=== PATIENT | female | born 1985 | race Caucasian/White ===

== ENCOUNTER 2017-08-04 21:43 | Emergency (ER) | payer MEDICARE, OTHER ==
[~2017-08-04] VITALS: Ht 157.5 cm; Wt 50.0 kg
[~2017-08-04 21:43] MED LIST: FIORIC PO
[2017-08-04 21:44] VITALS: BP 129/62; PULSE 80; RESP 15; TEMP 98; O2SAT 98
[2017-08-04] MEDS ORDERED: SODIUM CHLORIDE 0.9% FLUSH 10 ML FLUSH IV FLUSH PRN (22:15)
[2017-08-04 22:38] VITALS: BP 110/59; PULSE 73; RESP 18; TEMP 98.2; O2SAT 100
[2017-08-04 23:01] LABS: BACTERIA, URINE RARE /hpf; BLOOD, URINE NEG (NEG); GLUCOSE,URINE NEG (NEG); KETONE, URINE NEG (NEG); MUCUS URINE FEW /lpf (OCC); NITRITE,URINE NEG (NEG); SQUAMOUS EPITHELIAL CELL URINE 3 /hpf (0-5); URINE COLOR YELLOW (YELLW/STRAW)
[2017-08-04 23:03] LABS: COMMENT (UR) CULT NOT INDICATED; CULTURE IF INDICATED CULT NOT INDICATED
--- NOTE | 2017-08-04 23:05 | RADRPT ---
EXAM DATE/TIME: 08/04/2017 22:49 [place] COMPARISON: No previous studies available for comparison. INDICATIONS : Abdominal distention and constipation x4 days. ORAL CONTRAST: No oral contrast ingested. RADIATION DOSE: 4.50 CTDIvol (mGy) MEDICAL HISTORY : None SURGICAL HISTORY : Tubal ligation. section. ENCOUNTER: Initial ACUITY: 4 - 6 days PAIN SCALE: 6/10 LOCATION: Bilateral abdomen TECHNIQUE: Volumetric scanning of the abdomen and pelvis was performed. Using automated exposure control and ad justment of the mA and/or kV according to patient size, radiation dose was kept as low as reasonably achievable to obtain optimal diagnostic quality images. DICOM format image data is available electro nically for review and comparison. FINDINGS: Lung bases are clear. No acute findings in the liver, spleen, adrenals, kidneys or pancreas. Tiny non obstructing 1 mm calculus mid pole left kidney. Moderate constipation. No bowel obstruction. No free air or free fluid. Tubal ligation clips present in the pelvis. Mild levoscoliosis. CONCLUSION: 1. Moderate constipation. No obstruction, free fluid or free air. No acute findings. Small hiatal her jarret. Jc Atkinson MD on August 04, 2017 at 23:01 Board Certified Radiologist. This report was verified electronically.
--- NOTE | 2017-08-04 23:07 | PD ---
HPI Chief Complaint: GI Complaint Time Seen by Provider: 22:01 Travel History International Travel<30 days: No Contact w/Intl Traveler<30days: No Traveled to known affect area: No History of Present Illness HPI PATIENT C/O LAST BM 5 DAYS AGO AND NOW HAS HAD INCREASED IN SIZE OF HER ABDOMEN , SHE HAS IRREGULAR PERIODS ALSO, NO N/V/FEVER...ABLE TO PASS GAS NO PCP ALL: HIVES TO AMPICILLIN AND VOMITING TO FLAGYL PMHX: MIGRAINE NO MEDS DENIES PSHX PFSH Past Medical History Migraines: Yes Tubal Ligation: Yes Past Surgical History Abdominal Surgery: Yes Section: Yes (x3) Social History Alcohol Use: No Tobacco Use: Yes Substance Use: No Allergies-Medications (Allergen,Severity, Reaction): Coded Allergies: acetaminophen (Unverified Allergy, Severe, Rash, 08/04/17) ampicillin (Unverified Allergy, Severe, Rash, 08/04/17) codeine (Unverified Allergy, Severe, Rash, 08/04/17) metronidazole (Unverified Allergy, Severe, Rash, 08/04/17) propoxyphene (Unverified Allergy, Severe, Rash, 08/04/17) Reported Meds & Prescriptions Reported Meds & Active Scripts Active Fioricet Tab (Acetaminophen/Butalbital/Caffeine) 1 Tab 1 Tab PO Q6H PRN Review of Systems Except as stated in HPI: all other systems reviewed are Neg Gastrointestinal: Positive: Abdominal Pain, Constipation, Changes in Bowel Habits Physical Exam Narrative GENERAL: SKIN: Warm and dry. HEAD: Atraumatic. Normocephalic. EYES: Pupils equal and round. No scleral icterus. No injection or drainage. ENT: No nasal bleeding or discharge. Mucous membranes pink and moist. NECK: Trachea midline. No JVD. CARDIOVASCULAR: Regular rate and rhythm. RESPIRATORY: No accessory muscle use. Clear to auscultation. Breath sounds equal bilaterally. GASTROINTESTINAL: Abdomen soft, non-tender, nondistended. PATIENT NOTED TO BE BLOATED, WITH PRESENT BOWEL SOUNDS MUSCULOSKELETAL: Extremities without clubbing, cyanosis, or edema. No obvious deformities. NEUROLOGICAL: Awake and alert. No obvious cranial nerve deficits. Motor grossly within normal limits. Five out of 5 muscle strength in the arms and legs. Normal speech. PSYCHIATRIC: Appropriate mood and affect; insight and judgment normal. Data Data Last Documented VS Vital Signs Date Time Temp Pulse Resp B/P (MAP) Pulse Ox O2 Delivery O2 Flow Rate FiO2 08/04/17 22:38 98.2 73 18 110/59 (76) 100 08/04/17 21:44 Room Air Orders Orders Urinalysis - C+S If Indicated (08/04/17 22:02) Ct Abd/Pel W/O Iv Contrast (08/04/17 22:02) Iv Access Insert/Monitor (08/04/17 22:02) Ecg Monitoring (08/04/17 22:02) Oximetry (08/04/17 22:02) Sodium Chloride 0.9% Flush (Ns Flush) (08/04/17 22:15) Ed Urine Pregnancytest Poc (08/04/17 22:02) Labs Laboratory Tests Test 08/04/17 22:30 Urine Color YELLOW Urine Turbidity CLEAR Urine pH 6.0 Urine Specific [place] 1.030 Urine Protein TRACE mg/dL Urine Glucose (UA) NEG mg/dL Urine Ketones NEG mg/dL Urine Occult Blood NEG Urine Nitrite NEG Urine Bilirubin NEG Urine Urobilinogen 2.0 MG/DL Urine Leukocyte Esterase NEG Urine RBC 2 /hpf Urine WBC 1 /hpf Urine Squamous Epithelial Cells 3 /hpf Urine Bacteria RARE /hpf Urine Mucus FEW /lpf Microscopic Urinalysis Comment CULT NOT INDICATED MDM Medical Decision Making Medical Screen Exam Complete: Yes Emergency Medical Condition: Yes Medical Record Reviewed: Yes Differential Diagnosis PREG RELATED V UTI V SBO V ILEUS V APPY V COLITIS V DIVERTIC V CONSTIPATION Narrative Course NEG TEST, UA NEG FOR UTI, CT NEG APPY/DIVERTIC/COLITIS/ILEUS ONLY SHOWS MODERATE CONSTIPATION Diagnosis Primary Impression: Constipation Qualified Codes: K59.00 - Constipation, unspecified Patient Instructions: Constipation (ED), General Instructions Scripts Polyethylene Glycol 3350 Powder (Miralax Powder) 17 Gm Powd 17 GM PO DAILY for Constipation, #1 CAN 0 Refills Mix and dissolve one measuring cap-ful (17 grams) in water or juice. Prov: Anderson Avila MD 08/04/17 Magnesium Citrate Liq (Magnesium Citrate Liq) 300 Ml Liq 300 ML PO ONCE, #1 BOTTLE 0 Refills Prov: Anderson Avila MD 08/04/17 Lactulose Liq (Lactulose Liq) 10 Gm/15 Ml Soln 30 ML PO Q6H Y for CONSTIPATION for 5 Days, #600 ML 0 Refills Prov: Anderson Avila MD 08/04/17 Disposition: 01 DISCHARGE HOME Condition: Stable Anderson Avila MD Aug 04, 2017 23:07
[2017-08-04] MEDS ORDERED: LACT10SO PO (23:11)
[2017-08-04] MEDS ORDERED: MAGNSOL2 PO (23:11)
[2017-08-04] MEDS ORDERED: MIRA3350 PO (23:11)
== END 2017-08-05 00:43 | disposition home or self-care (01) ==
LOC: NEPE 21:43
DX: K59.00 Constipation, unspecified (principal); Z72.0 Tobacco use
CPT/HCPCS: 74176; 81001; 84703; 99284

== ENCOUNTER 2017-11-09 09:49 | Emergency (ER) | payer SELFPAY ==
[~2017-11-09] VITALS: Ht 157.5 cm; Wt 50.0 kg
[~2017-11-09 09:49] MED LIST changes: -FIORIC PO; +LACT10SO PO; +MAGNSOL2 PO; +MIRA3350 PO
[2017-11-09 09:50] VITALS: BP 121/77; PULSE 85; RESP 16; TEMP 98.7; O2SAT 98
[2017-11-09] MEDS ORDERED: SULFAMETHOXAZOLE-TRIMETHOPRIM DS 800-160 MG TAB PO ONE (10:15)
[2017-11-09] MEDS ORDERED: BACT800T5 PO (10:18)
--- NOTE | 2017-11-09 10:18 | PD ---
HPI Chief Complaint: Skin Problem Time Seen by Provider: 10:00 Travel History International Travel<30 days: No Contact w/Intl Traveler<30days: No Traveled to known affect area: No History of Present Illness HPI 32-year-old female presents to the emergency room for evaluation of an abscess to her right dorsal forearm that started about one week ago. Patient states it started off as a small little white head. She squeezed it and it has rapidly expanded since then. States yesterday it was at its largest but overnight it popped and when she woke up this morning she had green discharge from the wound. She applied a Band-Aid and came to the emergency room for evaluation. Denies fevers. Denies chronic medical conditions or daily medications. PFSH Past Medical History Diminished Hearing: No Migraines: Yes Tetanus Vaccination: > 5 Years Influenza Vaccination: No ?: Not LMP: TUBAL LIGATION Tubal Ligation: Yes Past Surgical History Abdominal Surgery: Yes Section: Yes (X3) Other Surgery: Yes (EX LAP X2) Social History Alcohol Use: No Tobacco Use: Yes (<1 ppd) Substance Use: No Allergies-Medications (Allergen,Severity, Reaction): Coded Allergies: acetaminophen (Unverified Allergy, Severe, Rash, 11/09/17) ampicillin (Unverified Allergy, Severe, Rash, 11/09/17) codeine (Unverified Allergy, Severe, Rash, 11/09/17) metronidazole (Unverified Allergy, Severe, Rash, 11/09/17) propoxyphene (Unverified Allergy, Severe, Rash, 11/09/17) Reported Meds & Prescriptions Reported Meds & Active Scripts Active No Active Prescriptions or Reported Medications Review of Systems Except as stated in HPI: all other systems reviewed are Neg Physical Exam Narrative GENERAL: Well-nourished, well-developed female in no acute distress. Afebrile. Ambulatory. SKIN: Focused skin assessment warm/dry. There is an indurated area in the right dorsal forearm which measures about 2 cm in diameter. It is fluctuant with moderate amount of spontaneous drainage. There is a zone of inflammation around it but no lymphangitis. HEAD: Normocephalic. EYES: No scleral icterus. No injection or drainage. NECK: Supple, trachea midline. No JVD or lymphadenopathy. CARDIOVASCULAR: Regular rate and rhythm without murmurs, gallops, or rubs. RESPIRATORY: Breath sounds equal bilaterally. No accessory muscle use. MUSCULOSKELETAL: No cyanosis, or edema. Data Data Last Documented VS Vital Signs Date Time Temp Pulse Resp B/P (MAP) Pulse Ox O2 Delivery O2 Flow Rate FiO2 11/09/17 09:50 98.7 85 16 121/77 (92) 98 Room Air Orders Orders Sulfamet-Trimeth Ds 800-160 Mg (Bactrim (11/09/17 10:15) MDM Medical Decision Making Medical Screen Exam Complete: Yes Emergency Medical Condition: Yes Medical Record Reviewed: Yes Differential Diagnosis Abscess, cellulitis, folliculitis Narrative Course 32-year-old female presents to the emergency room for evaluation of right forearm abscess that started 1 week ago as a small pimple. States it began to drain last night. Physical exam reveals 2 cm area of induration with spontaneous drainage and surrounding erythema. No lymphangitis. Abscess was squeezed and a large amount of purulent drainage was removed. Patient was given first dose of antibiotics in the emergency room. Told to apply warm compresses to facilitate drainage and follow-up the primary care physician or return for worsening symptoms. She understands and agrees to plan. Diagnosis Primary Impression: Abscess of right arm Referrals: Primary Care Physician Additional Instructions: Rest and drink plenty of fluids. Warm compresses to the affected area for 20 minutes at a time, 5 times daily. Take Bactrim as directed, until gone. Follow up with a primary care physician. Return to emergency room for worsening symptoms, as discussed. Med/Other Pt SpecificInfo: Prescription(s) given Scripts No Active Prescriptions or Reported Meds Disposition: 01 DISCHARGE HOME Condition: Stable Sola Hodge Nov 09, 2017 10:18
== END 2017-11-09 10:35 | disposition home or self-care (01) ==
LOC: NEPK 09:49
DX: L02.413 Cutaneous abscess of right upper limb (principal); F17.200 Nicotine dependence, unspecified, uncomplicated
CPT/HCPCS: 99283

== ENCOUNTER 2017-11-18 22:56 | Emergency (ER) | payer SELFPAY ==
[~2017-11-18 22:56] MED LIST changes: +BACT800T5 PO; -LACT10SO PO; -MAGNSOL2 PO; -MIRA3350 PO
[2017-11-18 23:00] VITALS: BP 119/63; PULSE 74; RESP 14; TEMP 98.6; O2SAT 98
--- NOTE | 2017-11-19 00:31 | PD ---
HPI Chief Complaint: Headache Time Seen by Provider: 00:31 Travel History International Travel<30 days: No Contact w/Intl Traveler<30days: No Traveled to known affect area: No History of Present Illness HPI 32-year-old female with history of migraine headache presents to emergency department for evaluation of migraine headache since yesterday. Patient states she took migraine Excedrin without any relief of her symptoms. She states this has happened in the past. She denies any head trauma. Denies any focal deficits or weakness. She has been nauseous and has vomited one time. She states these are typical for her migraines in the past. She has no other symptoms reported this time. PFSH Past Medical History Diminished Hearing: No Headaches: Yes Migraines: Yes ?: Not Tubal Ligation: Yes Past Surgical History Abdominal Surgery: Yes Section: Yes (X3) Other Surgery: Yes (EX LAP X2) Social History Alcohol Use: No Tobacco Use: Yes (<1 ppd) Substance Use: No Allergies-Medications (Allergen,Severity, Reaction): Coded Allergies: ampicillin (Verified Allergy, Severe, Rash, 11/19/17) codeine (Verified Allergy, Severe, Rash, 11/19/17) metronidazole (Verified Allergy, Severe, Rash, 11/19/17) propoxyphene (Verified Allergy, Severe, Rash, 11/19/17) Reported Meds & Prescriptions Reported Meds & Active Scripts Active No Active Prescriptions or Reported Medications Review of Systems Except as stated in HPI: all other systems reviewed are Neg Physical Exam Narrative GENERAL: Well-nourished, well-developed female patient in no acute distress SKIN: Focused skin assessment warm/dry. HEAD: Normocephalic. Atraumatic EARS: Bilateral pinnae and external canals appear within normal limits. Bilateral tympanic membranes without erythema, dullness or perforation. EYES: No scleral icterus. No injection or drainage. EOMI PERRL NECK: Supple, trachea midline. No JVD or lymphadenopathy. CARDIOVASCULAR: Regular rate and rhythm without murmurs, gallops, or rubs. RESPIRATORY: Breath sounds equal bilaterally. No accessory muscle use. GASTROINTESTINAL: Abdomen soft, non-tender, nondistended. MUSCULOSKELETAL: No cyanosis, or edema. BACK: Nontender without obvious deformity. No CVA tenderness. Data Data Last Documented VS Vital Signs Date Time Temp Pulse Resp B/P (MAP) Pulse Ox O2 Delivery O2 Flow Rate FiO2 11/19/17 01:49 11/18/17 23:00 98.6 74 14 98 Orders Orders Iv Access Insert/Monitor (11/19/17 00:32) Ketorolac Inj (Toradol Inj) (11/19/17 00:45) Metoclopramide Inj (Reglan Inj) (11/19/17 00:45) Diphenhydramine Inj (Benadryl Inj) (11/19/17 00:45) Sodium Chlor 0.9% 1000 Ml Inj (Ns 1000 M (11/19/17 00:45) Ed Discharge Order (11/19/17 01:46) [facility] Medical Decision Making Medical Screen Exam Complete: Yes Emergency Medical Condition: Yes Medical Record Reviewed: Yes Differential Diagnosis Migraine headache with or without aura versus cluster headache versus tension headache Narrative Course 32-year-old female presents to the emergency department for evaluation. Patient appears without distress. She has no focal deficits or weakness. Patient is treated for her migraine. Upon reassessment, symptoms have resolved. She is encouraged to follow-up with primary care provider and return immediately with any acute worsening symptoms. Diagnosis Primary Impression: Migraine Qualified Codes: G43.909 - Migraine, unspecified, not intractable, without status migrainosus Referrals: Primary Care Physician Patient Instructions: General Instructions, Migraine Headache (ED) Additional Instructions: Rest Maintain adequate oral hydration Follow-up with your primary care provider Return immediately with any acute worsening of symptoms Med/Other Pt SpecificInfo: No Change to Meds Scripts No Active Prescriptions or Reported Meds Disposition: 01 DISCHARGE HOME Condition: Stable Ana Nye Nov 19, 2017 00:31
[2017-11-19] MEDS ORDERED: SODIUM CHLOR 0.9% 1000 ML INJ 1,000 ML IV ONE (00:45)
[2017-11-19] MEDS ORDERED: METOCLOPRAMIDE HCL 10 MG/2 ML VIAL IV PUSH ONE (00:45)
[2017-11-19] MEDS ORDERED: KETOROLAC TROMETHAMINE 30 MG/ML (IVP) VIAL IV PUSH ONE (00:45)
[2017-11-19] MEDS ORDERED: diphenhydrAMINE HCL 50 MG/ML VIAL IV PUSH ONE (00:45)
== END 2017-11-19 01:55 | disposition home or self-care (01) ==
LOC: NEPD 22:56
DX: G43.909 Migraine, unspecified, not intractable, without status migrainosus (principal); F17.200 Nicotine dependence, unspecified, uncomplicated
CPT/HCPCS: 96374; 96375; 99284; J1200; J1885; J2765; J7030

== ENCOUNTER 2018-09-30 01:03 | Observation (INO) ==
--- NOTE | 2018-09-30 01:34 | XR ---
EXAM DATE: 09/30/2018 1:25 AM EST AGE/SEX: 33 years / Female INDICATIONS: Shortness of breath. CLINICAL DATA: This is the patient's initial encounter. Patient reports that signs and symptoms have been present for 1 day and indicates a pain score of 0/10. MEDICAL/SURGICAL HISTORY: None. Tubal ligation. section. COMPARISON: No prior exams available for comparison. FINDINGS: A single AP view of the chest demonstrates the lungs to be symmetrically aerated without evidence of mass, infiltrate or effusion. The cardiomediastinal contours are unremarkable. Osseous structures a re intact. CONCLUSION: No acute findings. Electronically signed by: Jc Atkinson MD 09/30/2018 1:33 AM EST
[2018-09-30 01:37] LABS: Baso # (Auto) 0.1 th/mm3 (0.0-0.2); Baso % (Auto) 0.4 % (0.0-2.0); Eos # (Auto) 0.1 th/mm3 (0.0-0.4); Eos % (Auto) 0.9 % (0.0-4.0); Hematocrit 36.8 % (35.0-46.0); Hemoglobin 12.5 gm/dL (11.6-15.3); Lymph # (Auto) 4.3 th/mm3 (1.0-4.8); Lymph % (Auto) 37.1 % (9.0-44.0); Mean Corpuscular HGB Conc 33.9 % (32.0-36.0); Mean Corpuscular Hemoglobin 28.9 pg (27.0-34.0); Mean Corpuscular Volume 85.2 fL (80.0-100.0); Mean Platelet Volume 9.7 fL (7.0-11.0); Mono # (Auto) 1.2 th/mm3 (0.0-0.9); Mono % (Auto) 10.5 % (0.0-8.0); Neut # (Auto) 5.9 th/mm3 (1.8-7.7); Neut % (Auto) 51.1 % (16.0-70.0); Platelet Count 332 th/mm3 (150-450); Red Blood Count 4.32 mil/mm3 (4.00-5.30); Red Cell Distribution Width 17.5 % (11.6-17.2); White Blood Count 11.5 th/mm3 (4.0-11.0)
--- NOTE | 2018-09-30 01:37 | ED ---
HPI General Chief Complaint: Chest Pain Stated Complaint: Respiratory Time Seen by Provider: 09/30/18 01:08 Source: patient Mode of arrival: EMS Limitations: no limitations History of Present Illness HPI narrative: 33-year-old female came to the emergency room saying that for 2 weeks she has been coughing but today she started having left-sided chest pain. Since yesterday she has been feeling short of breath. She describes the pain as an elephant sitting on her chest on the left side. Pain radiates to her left axilla. She is a smoker. Has not been diagnosed with asthma or COPD. When EMS arrived they said that they heard crackles and inflammation on the left side. Vital signs were relatively stable. She received 1 vial of DuoNeb and 1 vial of albuterol upon arrival. She does not require oxygen at home. Pain is there constantly with no aggravating or relieving factors identified Related Data Home Medications Medication Instructions Recorded Confirmed No Known Home Medications 09/30/18 09/30/18 Allergies Allergy/AdvReac Type Severity Reaction Status Date / Time ampicillin Allergy Severe Rash Verified 04/23/18 14:44 codeine Allergy Severe Rash Verified 04/23/18 14:44 metronidazole Allergy Severe Rash Verified 04/23/18 14:44 propoxyphene Allergy Severe Rash Verified 04/23/18 14:44 Review of Systems ROS: all other systems reviewed are negative [facility] Medical History Medical History Migraine (Acute) Surgical History Surgical History Hx of section (Acute) Hx of right knee surgery (Acute) Hx of tubal ligation (Acute) Social History Social History Substance History: No History of Abuse Second Hand Smoke Exposure: Yes Smoking Status: Current every day smoker Tobacco Type: Cigarettes How Often Do You Have a Drink Containing Alcohol: Never Recent Travel in [facility] within the Last 8 Weeks: No Recent Out of Country Travel within the Last 8 Weeks: No Immunization History Tetanus Immunization: Unsure Exam Narrative Exam Narrative: GENERAL: Awake, alert, moderate distress, anxious SKIN: Focused skin assessment warm/dry. HEAD: Atraumatic. Normocephalic. EYES: Pupils equal and round. No scleral icterus. No injection or drainage. ENT: No nasal bleeding or discharge. Mucous membranes pink and moist. NECK: Trachea midline. No JVD. CARDIOVASCULAR: Regular rate and rhythm. No murmur appreciated. RESPIRATORY: Decreased air entry bilaterally with end expiratory wheeze GASTROINTESTINAL: Abdomen soft, non-tender, nondistended. Hepatic and splenic margins not palpable. MUSCULOSKELETAL: No obvious deformities. No clubbing. No cyanosis. No edema. NEUROLOGICAL: Awake and alert. No obvious cranial nerve deficits. Motor grossly within normal limits. Normal speech. PSYCHIATRIC: Appropriate mood and affect; insight and judgment normal. Course Initial Documented Vital Signs Pulse Rate 89 09/30/18 01:09 Respiratory Rate 19 09/30/18 01:09 Blood Pressure 123/74 09/30/18 01:09 Pulse Oximetry 98 09/30/18 01:09 Last Documented Vital Signs Temperature 98.7 F 09/30/18 12:00 Pulse Rate 77 09/30/18 12:00 Respiratory Rate 16 09/30/18 12:00 Blood Pressure 104/65 09/30/18 12:00 Pulse Oximetry 98 09/30/18 12:00 Medical Decision Making [facility] Narrative Medical decision making narrative: 1:38 AM patient is getting a 2 on a been an albuterol treatment. Awaiting for blood test result. I will reassess her in a bit. 3:37 AM upon reassessment patient says that she feels like her pain is little better. However upon auscultation she was still diminished air entry with end expiratory wheeze. Have ordered to more albuterol nebulizers. After that patient will be admitted to the chest pain center to be ruled out. She has risk factor in the form of smoking. Blood test results were back and within acceptable limits. Both her d-dimer and troponin were within normal range. Medical Screen Exam Complete: Yes Emergency Medical Condition: Yes Lab Data Result diagrams: 09/30/18 01:17 09/30/18 01:17 Lab Results 09/30/18 09/30/18 09/30/18 Range/Units 01:17 01:17 01:17 WBC 11.5 H (4.0-11.0) th/mm3 RBC 4.32 (4.00-5.30) mil/mm3 Hgb 12.5 (11.6-15.3) gm/dL Hct 36.8 (35.0-46.0) % MCV 85.2 (80.0-100.0) fL MCH 28.9 (27.0-34.0) pg MCHC 33.9 (32.0-36.0) % RDW 17.5 H (11.6-17.2) % Plt Count 332 (150-450) th/mm3 MPV 9.7 (7.0-11.0) fL Neut % (Auto) 51.1 (16.0-70.0) % Lymph % (Auto) 37.1 (9.0-44.0) % Rooks % (Auto) 10.5 H (0.0-8.0) % Eos % (Auto) 0.9 (0.0-4.0) % Baso % (Auto) 0.4 (0.0-2.0) % Neut # (Auto) 5.9 (1.8-7.7) th/mm3 Lymph # (Auto) 4.3 (1.0-4.8) th/mm3 Rooks # (Auto) 1.2 H (0.0-0.9) th/mm3 Eos # (Auto) 0.1 (0.0-0.4) th/mm3 Baso # (Auto) 0.1 (0.0-0.2) th/mm3 WBC Differential . Differential Comment Auto diff final D-Dimer Quant (PE/DVT) 0.37 (0.00-0.50) mg/L FEU Sodium 143 (136-145) meq/L Potassium 3.7 (3.5-5.1) meq/L Chloride 109 H (98-107) meq/L Carbon Dioxide 25.9 (21.0-32.0) meq/L Anion Gap 8 (5-15) meq/L BUN 19 H (7-18) mg/dL Creatinine 0.96 (0.50-1.00) mg/dL Estimated GFR 67 L (>89) mL/min Random Glucose 117 H (74-106) mg/dL Calcium 8.7 (8.5-10.1) mg/dL Total Bilirubin 0.2 (0.2-1.0) mg/dL AST 16 (15-37) U/L ALT 26 (10-53) U/L Alkaline Phosphatase 101 (45-117) U/L Total Creatine Kinase (26-192) U/L Troponin I Less than 0.02 L (0.02-0.05) ng/mL Total Protein 7.7 (6.4-8.2) g/dL Albumin 3.3 L (3.4-5.0) g/dL 09/30/18 09/30/18 Range/Units 04:58 07:00 WBC (4.0-11.0) th/mm3 RBC (4.00-5.30) mil/mm3 Hgb (11.6-15.3) gm/dL Hct (35.0-46.0) % MCV (80.0-100.0) fL MCH (27.0-34.0) pg MCHC (32.0-36.0) % RDW (11.6-17.2) % Plt Count (150-450) th/mm3 MPV (7.0-11.0) fL Neut % (Auto) (16.0-70.0) % Lymph % (Auto) (9.0-44.0) % Rooks % (Auto) (0.0-8.0) % Eos % (Auto) (0.0-4.0) % Baso % (Auto) (0.0-2.0) % Neut # (Auto) (1.8-7.7) th/mm3 Lymph # (Auto) (1.0-4.8) th/mm3 Rooks # (Auto) (0.0-0.9) th/mm3 Eos # (Auto) (0.0-0.4) th/mm3 Baso # (Auto) (0.0-0.2) th/mm3 WBC Differential Differential Comment D-Dimer Quant (PE/DVT) (0.00-0.50) mg/L FEU Sodium (136-145) meq/L Potassium (3.5-5.1) meq/L Chloride (98-107) meq/L Carbon Dioxide (21.0-32.0) meq/L Anion Gap (5-15) meq/L BUN (7-18) mg/dL Creatinine (0.50-1.00) mg/dL Estimated GFR (>89) mL/min Random Glucose (74-106) mg/dL Calcium (8.5-10.1) mg/dL Total Bilirubin (0.2-1.0) mg/dL AST (15-37) U/L ALT (10-53) U/L Alkaline Phosphatase (45-117) U/L Total Creatine Kinase 35 33 (26-192) U/L Troponin I Less than 0.02 L Less than 0.02 L (0.02-0.05) ng/mL Total Protein (6.4-8.2) g/dL Albumin (3.4-5.0) g/dL Imaging Data Radiologist's impression: Chest X-Ray 09/30/18 01:09 CONCLUSION: No acute findings. ECG Data Attestation: I personally reviewed and interpreted this ECG as follows: Interpretation: Twelve-lead EKG was reviewed by me. Normal sinus rhythm, normal axis, nonspecific ST-T wave changes. Heart rate of 76 bpm. Discharge Plan Discharge Disposition Patient Disposition: 30 Still Patient Discharge Condition Condition: Stable Discharge Order Discharge Orders: Discharge Order (Routine); Ordered 09/30/18 Ordered By: Kem Carbajal Physicians Team ED Provider: Jalen Francois Primary Care Provider: Primary Care Jolene Moran Attending Provider: Mela Zamudio ED Status: Left Department Discharge Information Discharge Date/Time: 09/30/18 04:51
[2018-09-30 02:07] LABS: Alanine Aminotransferase 26 U/L (10-53); Albumin 3.3 g/dL (3.4-5.0); Anion Gap 8 meq/L (5-15); Aspartate Aminotransferase 16 U/L (15-37); Blood Urea Nitrogen 19 mg/dL (7-18); Calcium 8.7 mg/dL (8.5-10.1); Carbon Dioxide 25.9 meq/L (21.0-32.0); Chloride 109 meq/L (98-107); Glomerular Filtration Rate 67 mL/min (>89); Glucose,Random 117 mg/dL (74-106); Potassium 3.7 meq/L (3.5-5.1); Sodium 143 meq/L (136-145)
[2018-09-30 02:11] LABS: Alkaline Phosphatase 101 U/L (45-117); Total Protein 7.7 g/dL (6.4-8.2)
[2018-09-30 05:55] LABS: Creatine Kinase 35 U/L (26-192)
[2018-09-30 07:58] LABS: Creatine Kinase 33 U/L (26-192)
--- NOTE | 2018-09-30 09:08 | P.HPCA ---
History of Present Illness Primary Care Physician: No Primary Care Physician Chief Complaint: Chest pain and cough History of Present Illness: This is a 33-year-old female that presents to ED via EMS with complaint of chest pain. States that she has been coughing for 2 weeks. For the most part is been nonproductive but occasionally there is a clear colored mucus or even some lightly colored white mucus that is produced. Denies fevers or chills. States that 2 days ago she started having a left-sided chest discomfort when she coughs. It radiates to the left axillary region. When it occurs will last for a few moments. She has shortness of breath with it. Denies nausea or diaphoresis. Denies history of CAD. Cannot recall prior cardiac workup. Review of Systems General: Patient denies fevers, chills, and recent travel. HEENT: Patient denies headache, sore throat, difficulty swallowing. Cardiovascular: Has the chest discomfort as mentioned above. Denies sensation of heart beating rapidly or irregularly. No syncope. Denies diaphoresis. Respiratory: She has been coughing. She has been short of breath. Denies inspirational chest discomfort. Denies hemoptysis. GI: Patient denies nausea, vomiting, diarrhea, abdominal pain, bloody stools. Musculoskeletal: Patient denies joint pain or edema. Denies calf pain or edema. Neurovascular: Patient denies numbness, tingling, weakness in extremities. Denies headache. Endocrine: Denies polyuria and polydipsia. Hematologic: Denies easy bruising. Skin: Denies rash or itching. PMFSH - History History Provided By: Patient - Medical History Medical History: Medical History (Last Reviewed 09/30/18 @ 01:35 by Jalen Francois MD) Migraine - Surgical History Surgical History: Surgical History (Last Reviewed 09/30/18 @ 01:35 by Jalen Francois MD) Hx of section Hx of right knee surgery Hx of tubal ligation - Tobacco History Second Hand Smoke Exposure: Yes Tobacco Use In Past 30 Days: Yes Smoking Status: Current every day smoker Tobacco Type: Cigarettes - Alcohol History How Often Do You Have a Drink Containing Alcohol: Never - Substance Use History Substance History: No History of Abuse - Travel History Recent Travel in the [place] Within the Last 8 Weeks: No Recent Travel Out of the Country Within the Last 8 Weeks: No - Immunization History Tetanus Immunization: Unsure Medications and Allergies Active Medications: Active Medications Sodium Chloride (Ns Flush) 2 ml IV.FLUSH BID TEJAL Sodium Chloride (Ns Flush) 2 ml IV.FLUSH PRN PRN PRN Reason: FLUSH AFTER USING IV ACCESS Allergies Allergy/AdvReac Type Severity Reaction Status Date / Time ampicillin Allergy Severe Rash Verified 04/23/18 14:44 codeine Allergy Severe Rash Verified 04/23/18 14:44 metronidazole Allergy Severe Rash Verified 04/23/18 14:44 propoxyphene Allergy Severe Rash Verified 04/23/18 14:44 Home Medications Medication Instructions Recorded Confirmed Type No Known Home Medications 09/30/18 09/30/18 History Exam Vital signs: Vital Signs 09/30/18 01:09 09/30/18 01:17 09/30/18 01:23 Temperature Pulse Rate 89 91 H 89 Respiratory Rate 19 18 Blood Pressure 123/74 Pulse Oximetry 98 98 09/30/18 03:10 09/30/18 03:29 09/30/18 03:30 Temperature Pulse Rate 87 82 82 Respiratory Rate 17 16 16 Blood Pressure 104/60 Pulse Oximetry 98 09/30/18 08:00 Temperature 98.3 F Pulse Rate 83 Respiratory Rate 20 Blood Pressure 99/55 L Pulse Oximetry 98 Intake & Output 09/29/18 09/30/18 09/30/18 18:59 06:59 18:59 Weight 45.359 kg Other: Date of Last Bowel Movement 09/29/18 Weight On Admission 45.359 kg Narrative: GENERAL: This is a well-nourished, well-developed patient, in no apparent distress. Patient speaks in clear complete sentences. Patient is pleasant. HEENT: Head is atraumatic and normocephalic. Neck is supple without lymphadenopathy and trachea is midline. No JVD or carotid bruits. CARDIOVASCULAR: Regular rate and rhythm without murmurs, gallops, or rubs. RESPIRATORY: Scattered expiratory wheezing. Breath sounds equal bilaterally. No rales or rhonchi. Chest wall is tender and pressing on the area reproduces the same discomfort that brought her to the ED. No use of accessory muscles. GASTROINTESTINAL: Abdomen is nontender, nondistended. Abdomen soft. No obvious pulsatile mass or bruit. No CVA tenderness. Strong femoral pulses bilaterally. Normal bowel sounds in all quadrants. MUSCULOSKELETAL: Patient is moving upper and lower extremities freely. No calf tenderness or edema, no Homans sign. Strong pulses in upper and lower extremities. NEUROLOGICAL: Patient is alert and oriented. Cranial nerves 2-12 are grossly intact. No focal deficits and speech is clear. SKIN: No rash and turgor is normal. Results 09/30/18 01:17 09/30/18 01:17 Cardiac Enzymes 09/30/18 09/30/18 09/30/18 Range/Units 01:17 04:58 07:00 AST 16 (15-37) U/L Troponin I Less than 0.02 L Less than 0.02 L Less than 0.02 L (0.02-0.05) ng/mL CBC 09/30/18 Range/Units 01:17 WBC 11.5 H (4.0-11.0) th/mm3 RBC 4.32 (4.00-5.30) mil/mm3 Hgb 12.5 (11.6-15.3) gm/dL Hct 36.8 (35.0-46.0) % Plt Count 332 (150-450) th/mm3 Neut # (Auto) 5.9 (1.8-7.7) th/mm3 Lymph # (Auto) 4.3 (1.0-4.8) th/mm3 [place] # (Auto) 1.2 H (0.0-0.9) th/mm3 Eos # (Auto) 0.1 (0.0-0.4) th/mm3 Baso # (Auto) 0.1 (0.0-0.2) th/mm3 Comprehensive Metabolic Panel 09/30/18 Range/Units 01:17 Sodium 143 (136-145) meq/L Potassium 3.7 (3.5-5.1) meq/L Chloride 109 H (98-107) meq/L Carbon Dioxide 25.9 (21.0-32.0) meq/L BUN 19 H (7-18) mg/dL Creatinine 0.96 (0.50-1.00) mg/dL Calcium 8.7 (8.5-10.1) mg/dL AST 16 (15-37) U/L ALT 26 (10-53) U/L Alkaline Phosphatase 101 (45-117) U/L Total Protein 7.7 (6.4-8.2) g/dL Albumin 3.3 L (3.4-5.0) g/dL Intake and Output 09/29/18 09/30/18 09/30/18 22:59 06:59 14:59 Other: Date of Last Bowel Movement 09/29/18 Weight 45.359 kg Weight On Admission 45.359 kg - Imaging and Cardiology Imaging: Impressions Chest X-Ray 09/30/18 01:09 CONCLUSION: No acute findings. EKG interpretations - EKG EKG shows: sinus rhythm (EKGs are sinus rhythm without significant ST segment depressions or elevations.) Caprini VTE Risk Assessment Caprini VTE Risk Assessment: No/Low Risk (score <= 1) Caprini Risk Assessment Model: Point Value = 1 Point Value = 2 Point Value = 3 Point Value = 5 Age 41-60 Minor surgery BMI > 25 kg/m2 Swollen legs Varicose veins or History of unexplained or recurrent spontaneous Oral contraceptives or hormone replacement Sepsis (< 1 month) Serious lung disease, including pneumonia (< 1 month) Abnormal pulmonary function Acute myocardial infarction Congestive heart failure (< 1 month) History of inflammatory bowel disease Medical patient at bed rest Age 61-74 Arthroscopic surgery Major open surgery (> 45 min) Laparoscopic surgery (> 45 min) Malignancy Confined to bed (> 72 hours) Immobilizing plaster cast Central venous access Age >= 75 History of VTE Family history of VTE Factor V Leiden Prothrombin [id number] Lupus anticoagulant Anticardiolipin antibodies Elevated serum homocysteine Heparin-induced thrombocytopenia Other congenital or acquired thrombophilia Stroke (< 1 month) Elective arthroplasty Hip, pelvis, or leg fracture Acute spinal cord injury (< 1 month) Prophylaxis Regimen: Total Risk Factor Score Risk Level Prophylaxis Regimen 0-1 Low Early ambulation 2 Moderate Order ONE of the following: *Sequential Compression Device (SCD) *Heparin 5000 units SQ BID 3-4 Higher Order ONE of the following medications: *Heparin 5000 units SQ TID *Enoxaparin/Lovenox 40 mg SQ daily (WT < 150 kg, CrCl > 30 mL/min) *Enoxaparin/Lovenox 30 mg SQ daily (WT < 150 kg, CrCl > 10-29 mL/min) *Enoxaparin/Lovenox 30 mg SQ BID (WT < 150 kg, CrCl > 30 mL/min) AND/OR *Sequential Compression Device (SCD) 5 or more Highest Order ONE of the following medications: *Heparin 5000 units SQ TID (Preferred with Epidurals) *Enoxaparin/Lovenox 40 mg SQ daily (WT < 150 kg, CrCl > 30 mL/min) *Enoxaparin/Lovenox 30 mg SQ daily (WT < 150 kg, CrCl > 10-29 mL/min) *Enoxaparin/Lovenox 30 mg SQ BID (WT < 150 kg, CrCl > 30 mL/min) AND *Sequential Compression Device (SCD) Assessment and Plan - Plan * Atypical chest pain: Patient has had serial cardiac enzymes and EKGs for ruling out purposes. She will be seen by Dr. Ball of cardiology and the chest pain center. Her symptoms seem musculoskeletal in nature and likely from coughing. She will be given a DuoNeb and instructed to quit smoking. She is to follow-up with PCP. Return to ED for interval issues. * Tobacco abuse: Patient has been counseled on the importance of smoking cessation. Patient is stable at this time. She is agreeable to this plan. H&P: Quality - VTE Deep Vein Thrombosis/Pulmonary Embolism Present on Admission: Yes
--- NOTE | 2018-09-30 09:38 | P.PNCA ---
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 She is a homeless smoker with a history of heroin abuse recently discharged from [facility]. She has had a cough for about 2 weeks but one day prior to admission began to experience left-sided chest pain which is pleuritic in nature. She has had sputum production but it has been clear white thus far.. She denies fever or chills but may have had some night sweats. She has been ruled out for ACS using standard chest pain protocol. Chest x-ray was unremarkable for acute process. She appears to have an upper respiratory infection most likely viral associated with pleurodynia. Medications and Allergies Active Medications: Active Medications Albuterol (Duoneb Neb (Prn)) 1 ampul NEB Q4HR NEB PRN PRN Reason: SHORTNESS OF BREATH/WHEEZING Last Admin: 09/30/18 09:20 Dose: 1 ampul Sodium Chloride (Ns Flush) 2 ml IV.FLUSH BID TEJAL Last Admin: 09/30/18 09:29 Dose: 2 ml Sodium Chloride (Ns Flush) 2 ml IV.FLUSH PRN PRN PRN Reason: FLUSH AFTER USING IV ACCESS Allergies Allergy/AdvReac Type Severity Reaction Status Date / Time ampicillin Allergy Severe Rash Verified 04/23/18 14:44 codeine Allergy Severe Rash Verified 04/23/18 14:44 metronidazole Allergy Severe Rash Verified 04/23/18 14:44 propoxyphene Allergy Severe Rash Verified 04/23/18 14:44 Home Medications Medication Instructions Recorded Confirmed Type No Known Home Medications 09/30/18 09/30/18 History Physical Exam Vital signs: Vital Signs 09/30/18 01:09 09/30/18 01:17 09/30/18 01:23 Temperature Pulse Rate 89 91 H 89 Respiratory Rate 19 18 Blood Pressure 123/74 Pulse Oximetry 98 98 09/30/18 03:10 09/30/18 03:29 09/30/18 03:30 Temperature Pulse Rate 87 82 82 Respiratory Rate 17 16 16 Blood Pressure 104/60 Pulse Oximetry 98 09/30/18 08:00 09/30/18 09:26 09/30/18 09:29 Temperature 98.3 F Pulse Rate 83 86 Respiratory Rate 20 14 Blood Pressure 99/55 L Pulse Oximetry 98 99 Intake & Output 09/29/18 09/30/18 09/30/18 18:59 06:59 18:59 Weight 45.359 kg Other: Date of Last Bowel Movement 09/29/18 Weight On Admission 45.359 kg Narrative: Thin female currently coughing with obvious chest pain associated. Skin warm and dry with a number of tattoos Neck supple no JVD masses nodes or bruits Chest significantly diminished breath sounds but no rales wheezes or rhonchi at the current time Cardiovascular regular sinus rhythm no gallop rub or murmur Extremities no clubbing cyanosis or edema Results 09/30/18 01:17 09/30/18 01:17 Cardiac Enzymes 09/30/18 09/30/18 09/30/18 Range/Units 01:17 04:58 07:00 AST 16 (15-37) U/L Troponin I Less than 0.02 L Less than 0.02 L Less than 0.02 L (0.02-0.05) ng/mL CBC 09/30/18 Range/Units 01:17 WBC 11.5 H (4.0-11.0) th/mm3 RBC 4.32 (4.00-5.30) mil/mm3 Hgb 12.5 (11.6-15.3) gm/dL Hct 36.8 (35.0-46.0) % Plt Count 332 (150-450) th/mm3 Neut # (Auto) 5.9 (1.8-7.7) th/mm3 Lymph # (Auto) 4.3 (1.0-4.8) th/mm3 [place] # (Auto) 1.2 H (0.0-0.9) th/mm3 Eos # (Auto) 0.1 (0.0-0.4) th/mm3 Baso # (Auto) 0.1 (0.0-0.2) th/mm3 Comprehensive Metabolic Panel 09/30/18 Range/Units 01:17 Sodium 143 (136-145) meq/L Potassium 3.7 (3.5-5.1) meq/L Chloride 109 H (98-107) meq/L Carbon Dioxide 25.9 (21.0-32.0) meq/L BUN 19 H (7-18) mg/dL Creatinine 0.96 (0.50-1.00) mg/dL Calcium 8.7 (8.5-10.1) mg/dL AST 16 (15-37) U/L ALT 26 (10-53) U/L Alkaline Phosphatase 101 (45-117) U/L Total Protein 7.7 (6.4-8.2) g/dL Albumin 3.3 L (3.4-5.0) g/dL Intake and Output 09/29/18 09/30/18 09/30/18 22:59 06:59 14:59 Other: Date of Last Bowel Movement 09/29/18 Weight 45.359 kg Weight On Admission 45.359 kg - Imaging and Cardiology Imaging: Impressions Chest X-Ray 09/30/18 01:09 CONCLUSION: No acute findings. Assessment and Plan - Plan * Atypical chest pain: Patient has had serial cardiac enzymes and EKGs for ruling out purposes. She will be seen by Dr. Ball of cardiology and the chest pain center. Her symptoms seem musculoskeletal in nature and likely from coughing. She will be given a DuoNeb and instructed to quit smoking. She is to follow-up with PCP. Return to ED for interval issues. * Tobacco abuse: Patient has been counseled on the importance of smoking cessation. Patient is stable at this time. She is agreeable to this plan. Physician addendum Patient appears to have a viral URI associated with pleuritic chest pain. She will be treated as outlined above and instructed if she develops fever chills purulent sputum or worsening of her symptoms she should return to the emergency room.
--- NOTE | 2018-09-30 11:08 | ECG ---
Date Performed: 09/30/2018 Time Performed: 01:10:28 PTAGE: 33 years EKG: Sinus rhythm WITH SHORT MT INTERVAL BORDERLINE ECG NO PREVIOUS TRACING DOCTOR: Twan Ball Interpretating Date/Time 09/30/2018 11:07:58
--- NOTE | 2018-09-30 11:08 | ECG ---
Date Performed: 09/30/2018 Time Performed: 04:58:47 PTAGE: 33 years EKG: Sinus rhythm POSSIBLE LEFT ATRIAL ENLARGEMENT POSSIBLE RIGHT VENTRICULAR CONDUCTION DELAY BORDERLINE ECG No signi ficant change NO PREVIOUS TRACING DOCTOR: Twan Ball Interpretating Date/Time 09/30/2018 11:07:50
--- NOTE | 2018-10-01 08:59 | ECG ---
Date Performed: 09/30/2018 Time Performed: 07:57:16 PTAGE: 33 years EKG: Sinus rhythm POSSIBLE LEFT ATRIAL ENLARGEMENT POSSIBLE RIGHT VENTRICULAR CONDUCTION DELAY BORDERLINE ECG No signi ficant change PREVIOUS TRACING : 09/30/2018 04.58 DOCTOR: Twan Ball Interpretating Date/Time 10/01/2018 08:57:36
== END 2018-09-30 14:13 | disposition home or self-care (01) ==
LOC: NEDA 01:03 → NEPC 01:03 → NEDA 04:51 → NEPFCDU 05:04
PROVIDERS: ADMIT Internal Medicine Interventional Cardiology; ATTEND Internal Medicine Interventional Cardiology
DX: G43.909 Migraine, unspecified, not intractable, without status migrainosus; Z88.5 Allergy status to narcotic agent; I26.99 Other pulmonary embolism without acute cor pulmonale; Z98.51 Tubal ligation status; Z98.891 History of uterine scar from previous surgery; Z88.0 Allergy status to penicillin; R07.89 Other chest pain; F17.210 Nicotine dependence, cigarettes, uncomplicated; J06.9 Acute upper respiratory infection, unspecified